=== PATIENT | female | born 2000 | race Caucasian/White ===

== ENCOUNTER 2020-10-14 14:51 | Observation (INO) | payer OTHER, SELFPAY ==
[2020-10-14 15:01] VITALS: BP 125/73; PULSE 135
[2020-10-14 15:15] VITALS: BP 117/65; PULSE 164
[2020-10-14 15:30] VITALS: BP 113/72; PULSE 121
[2020-10-14 15:46] VITALS: BP 130/94; PULSE 109
--- NOTE | 2020-10-14 15:51 | PC.NURSE ---
Spoke with Dr. Hinkle, SVE and NST reviewed. Orders to discharge patient to home.
--- NOTE | 2020-10-14 15:54 | OBADM ---
This patient, Zita Cloud, admitted to the OB room Labor/Delivery/Recovery 105 for observation. Patient/family oriented to hospital policies and general routines including ID bracelet, bed and alarms, visiting hours, pain management, procedures, bathroom and other care routines, personal items, smoking policy, room service/diet, and visiting hours. Patient/Family are encouraged to report perceived risks to care and to ask questions if they do not understand what they are told or what they should do.
--- NOTE | 2020-10-14 15:59 | P.PNOB_ITS ---
OB - Triage/Final Diagnosis Visit Information Date of evaluation: 10/14/20 Reason for evaluation: threatened labor Comments/Additional reasons for admission: I have assessed the risk for this patient, Zita Cloud, and determined that she would benefit from o bservation care. Evaluation Vital signs: Vital Signs - 24 hr 10/14/20 15:01 10/14/20 15:15 10/14/20 15:30 Pulse Rate 135 H 164 H 121 H Blood Pressure 125/73 117/65 113/72 10/14/20 15:46 Pulse Rate 109 H Blood Pressure 130/94 H
[2020-10-14 16:00] VITALS: BP 129/69; PULSE 113
[2020-10-14 16:01] VITALS: BP 129/69; PULSE 106
== END 2020-10-14 16:06 | disposition home or self-care (01) ==
PROVIDERS: Admitting Provider Student in an Organized Health Care Education/Training Program; Visit Provider Student in an Organized Health Care Education/Training Program
DX: O47.9 False labor, unspecified (principal); Z3A.00 Weeks of gestation of pregnancy not specified
CPT/HCPCS: 59025; G0378; G0379

== ENCOUNTER 2020-10-14 23:11 | Inpatient (IN) | payer OTHER, SELFPAY ==
[2020-10-14 23:22] VITALS: BP 146/70; PULSE 152
[2020-10-14 23:30] VITALS: BP 140/84; PULSE 130
[2020-10-14 23:45] VITALS: BP 140/76; PULSE 110
[2020-10-15] VITALS (62 sets, daily range): BP systolic 105–141; BP diastolic 55–107; PULSE 73–159; RESP 14–18; TEMP 36.4–37.1; O2SAT 96–99; BMI 25.1
[2020-10-15 00:28] LABS: Basophils Percent Auto 0.4 % (0.2-1.2); Eosinophils Percent Auto 0.4 % (0-4.4); Hematocrit 29.3 % (37.0-47.0); Hemoglobin 9.4 g/dL (12.0-15.0); Immature Granulocyte Absolute 0.27 K/mm3 (0.00-0.031); Immature Granulocyte Percent A 2.8 % (0-0.5); Lymphocytes Absolute Auto 1.35 K/mm3 (0.9-3.2); Lymphocytes Percent Auto 13.9 % (18.3-44.2); Mean Corpuscular HGB Conc 32.1 g/dl (32-36); Mean Corpuscular Hemoglobin 26.6 pg (26-34); Mean Platelet Volume 11.8 fl (7.4-10.4); Monocytes Absolute Auto 0.8 K/mm3 (0.1-0.6); Monocytes Percent Auto 8.4 % (2.6-8.5); Neutrophils Absolute Auto 7.2 K/mm3 (1.3-6.7); Neutrophils Percent Auto 74.1 % (45.5-73.1); Nucleated Red Blood Cells Perc 0.3 % (0.0-0.2); Platelet Count Result 194 k/mm3 (150-375); Red Blood Count 3.53 M/mm3 (4.2-5.4); Red Cell Distribution Width 13.2 % (11.5-14.5); White Blood Count 9.7 K/mm3 (4.5-10.0)
--- NOTE | 2020-10-15 00:55 | LDADM ---
This patient, Zita Cloud, was admitted to Labor/Delivery/Recovery 106 on 10/14/20 at 23:11. Plans for labor, pain management and were discussed with patient. Patient/family oriented to hospital policies and general routines including ID bracelet, bed and alarms, visiting hours, pain management, procedures, bathroom and other care routines, personal items, smoking policy, room service/diet and guest tray routines, infant security routines, and visiting hours. Patient/Family are encouraged to report perceived risks to care and to ask questions if they do not understand what they are told or what they should do. See OBIX for further documentation.
[2020-10-15] MEDS: LACTATED RINGERS 1,000 ML 125 ML IV CONT ×2 (03:41→04:16)
--- NOTE | 2020-10-15 04:07 | WPDANESEPP ---
Anes - Eval Pre Procedure Procedure: Labor epidural Date/Time: 10/15/20 04:07 Surgeon: jean pierre Preop Diagnosis: abd pain with contractions Pre Op Diagnosis: SROM Patient Data Age: 20 Gender: F Height: Weight: Last Vital Signs Temp 97.9 F 10/15/20 03:40 Pulse 132 H 10/15/20 04:00 BP 105/70 10/15/20 04:00 Pulse Ox 98 10/15/20 04:05 Allergies Allergy/AdvReac Type Severity Reaction Status Date / Time No Known Allergies Allergy Verified 09/26/20 15:41 Home Medications Medication Instructions Recorded Confirmed Type ergocalciferol (vitamin D2) 1,250 mcg PO WEEKLY 09/26/20 10/14/20 History [Vitamin D2] ferrous sulfate 250 mg PO DAILY 09/26/20 10/14/20 History prenat.vits,harshil,qud-bvhf-ipoqw 1 tablet PO DAILY 09/26/20 10/14/20 History Laboratory Tests 10/15/20 10/15/20 10/15/20 00:20 00:20 00:20 WBC 9.7 K/mm3 K/mm3 (4.5-10.0) RBC 3.53 M/mm3 L M/mm3 (4.2-5.4) Hgb 9.4 g/dL L g/dL (12.0-15.0) Hct 29.3 % L % (37.0-47.0) MCV 83.0 fl fl (80-100) MCH 26.6 pg pg (26-34) MCHC 32.1 g/dl g/dl (32-36) RDW 13.2 % % (11.5-14.5) Plt Count 194 k/mm3 k/mm3 (150-375) MPV 11.8 fl H fl (7.4-10.4) Immature Gran % (Auto) 2.8 % H % (0-0.5) Neut % (Auto) 74.1 % H % (45.5-73.1) Lymph % (Auto) 13.9 % L % (18.3-44.2) [place] % (Auto) 8.4 % % (2.6-8.5) Eos % (Auto) 0.4 % % (0-4.4) Baso % (Auto) 0.4 % % (0.2-1.2) Lymph # (Auto) 1.35 K/mm3 K/mm3 (0.9-3.2) [place] # (Auto) 0.8 K/mm3 H K/mm3 (0.1-0.6) Eos # (Auto) 0.0 K/mm3 K/mm3 (0-0.3) Baso # (Auto) 0.0 K/mm3 K/mm3 (0.0-0.1) Abs Immat Gran (auto) 0.27 K/mm3 H K/mm3 (0.00-0.031) Absolute Neuts (auto) 7.2 K/mm3 H K/mm3 (1.3-6.7) Absolute Nucleated RBC 0.0 K/mm3 K/mm3 (0.0-0.012) Nucleated RBC % 0.3 % H % (0.0-0.2) RPR Pending Blood Type O Positive Antibody Screen Negative Patient hx anesthesia problems: none Family hx anesthesia problems: none PMFSH Past Medical History Medical History 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
--- NOTE | 2020-10-15 05:02 | PM.IMHP ---
H&P: HPI History of Present Illness Date/Time: 10/15/20 05:02 20-year-old 2 para 1 with an EDC of 10/23/2020. We by early ultrasound is admitted in active labor. She transferred at 29 weeks gestation. 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 Family History Family History Grandparent Diabetes mellitus Sibling Epilepsy Social History Social History Smoking status: Never smoker Second hand tobacco smoke exposure: No Substance use: never Spiritual care concerns: No Meds Home Medications and Allergies Home Medications Medication Instructions Recorded Confirmed Type ergocalciferol (vitamin D2) 1,250 mcg PO WEEKLY 09/26/20 10/14/20 History [Vitamin D2] ferrous sulfate 250 mg PO DAILY 09/26/20 10/14/20 History prenat.vits,harshil,pyr-ghno-ipwfo 1 tablet PO DAILY 09/26/20 10/14/20 History Allergies Allergy/AdvReac Type Severity Reaction Status Date / Time No Known Allergies Allergy Verified 09/26/20 15:41 Vital Signs Vital Signs - 24 hr 10/14/20 23:22 10/14/20 23:30 10/14/20 23:45 Temperature Pulse Rate 152 H 130 H 110 H Blood Pressure 146/70 H 140/84 140/76 Pulse Oximetry 10/15/20 00:00 10/15/20 00:15 10/15/20 00:30 Temperature 98.8 F Pulse Rate 90 98 86 Blood Pressure 137/76 139/69 137/74 Pulse Oximetry 10/15/20 00:45 10/15/20 01:00 10/15/20 01:15 Temperature Pulse Rate 106 H 113 H 106 H Blood Pressure 130/78 130/71 123/74 Pulse Oximetry 10/15/20 01:30 10/15/20 01:45 10/15/20 02:00 Temperature Pulse Rate 85 88 117 H Blood Pressure 126/67 119/67 133/62 Pulse Oximetry 10/15/20 02:15 10/15/20 02:30 10/15/20 02:45 Temperature Pulse Rate 114 H 94 99 Blood Pressure 113/60 119/64 112/73 Pulse Oximetry 10/15/20 03:00 10/15/20 03:15 10/15/20 03:30 Temperature Pulse Rate 86 84 95 Blood Pressure 117/67 110/70 120/92 H Pulse Oximetry 10/15/20 03:40 10/15/20 03:45 10/15/20 04:00 Temperature 97.9 F Pulse Rate 111 H 132 H Blood Pressure 128/73 105/70 Pulse Oximetry 98 10/15/20 04:05 10/15/20 04:07 10/15/20 04:08 Temperature Pulse Rate 111 H 107 H Blood Pressure 127/75 138/68 Pulse Oximetry 98 10/15/20 04:10 10/15/20 04:12 10/15/20 04:13 Temperature Pulse Rate 103 H 109 H 101 H Blood Pressure 119/77 110/75 123/65 Pulse Oximetry 98 98 10/15/20 04:15 10/15/20 04:17 10/15/20 04:18 Temperature Pulse Rate 105 H 105 H Blood Pressure 134/65 131/73 Pulse Oximetry 96 10/15/20 04:20 10/15/20 04:22 10/15/20 04:23 Temperature Pulse Rate 94 142 H Blood Pressure 124/107 H 120/67 Pulse Oximetry 98 10/15/20 04:24 10/15/20 04:25 10/15/20 04:26 Temperature 98.1 F Pulse Rate 159 H 114 H Blood Pressure 110/59 L 113/55 L Pulse Oximetry 10/15/20 04:27 10/15/20 04:28 10/15/20 04:30 Temperature Pulse Rate 90 87 Blood Pressure 140/72 126/64 Pulse Oximetry 98 10/15/20 04:32 10/15/20 04:37 10/15/20 04:42 Temperature Pulse Rate Blood Pressure Pulse Oximetry 98 96 98 10/15/20 04:45 10/15/20 04:47 10/15/20 04:52 Temperature Pulse Rate 77 Blood Pressure 122/65 Pulse Oximetry 99 99 10/15/20 04:57 10/15/20 05:00 Temperature Pulse Rate Blood Pressure 139/83 Pulse Oximetry 99 Exam Const: General: no acute distress Eyes: General: appearance normal, both eyes and all related structures Neck: Neck: supple and no JVD Thyroid: thyroid normal Resp: Effort & Inspection: normal respiratory effort Au
--- NOTE | 2020-10-15 05:26 | PM.OBPRVD ---
OB - Delivery Note Procedure Delivery date: 10/15/20 Intrapartal events: None Induction method: none Delivery monitor: external FHT Route of delivery: Episiotomy description: None Laceration Description: None Quantitative Blood Loss (ml): 158 Anesthesia type: Epidural Disposition: floor Baby Date of : 10/15/20 Time of : 05:16 Weeks of gestation at delivery: 39 gender: Female presentation: vertex position: Right Occiput Anterior Placenta delivery description: Spontaneous cord vessel description: 3 Vessels score one minute: 9 score five minutes: 9
[2020-10-15] MEDS: OXYTOCIN 30 UNITS/NS 500 ML 30 UNITS/500 ML BAG 125 UNITS IV CONT (05:52)
[2020-10-15] MEDS: BENZOCAINE 20% AER SPR (*SP) 56 GM CAN 1 SPRAY TOPICAL (08:17)
[2020-10-15] MEDS: WITCH HAZEL 40 PADS 1 PAD TOPICAL (08:18)
[2020-10-15] MEDS: MULTIVIT/MIN/PREN/FOL AC/IRON TABLET 1 TAB PO (08:55)
[2020-10-15] MEDS: POLYSACCHARIDE IRON COMPLEX 150 MG CAPSULE PO ×2 (08:56→16:13)
[2020-10-15] MEDS: IBUPROFEN 600 MG TABLET PO ×2 (08:57→16:11)
[2020-10-15] MEDS: DOCUSATE SODIUM 100 MG CAPSULE PO ×2 (08:57→16:13)
[2020-10-15] MEDS: LANOLIN (LANSINOH) 7.5 GM CREAM 1 APPLIC TOPICAL (09:02)
[2020-10-15 12:00] LABS: Rapid Plasma Reagin Non-Reactive (NonReactive)
--- NOTE | 2020-10-15 12:50 | PC.NURSE ---
Consulted with patient, mother reports first child for 1 month with difficulties and pain with feeding. Mother was pleased eagerly latched for first feeding. Reviewed feeding cues, frequencies, duration of feedings, feeding elimination flow sheet, and signs of adequate intake. not ready for next feeding, demonstrated stimulation techniques to wake for feeding. Assisted with infant to breast. Reviewed positioning/alignment in cross cradle, holding breast in U hold and guided asymmetrical latch on. was able to latch correctly. Infant nursed eagerly, with steady draws and frequent swallowing noted. Reviewed signs of a correct latch, effective nursing and suck swallow ratio. Infant was able to maintain latch without discomfort to mother. Nipple care reviewed. slipped to shallow latch, demonstrated how to adjust latch more deeply while feeding. Mother quickly reports she can feel infant is latched more deeply and has minimal tenderness. Suggested to stimulate while feeding to keep awake and nursing effectively for increased stimulation and increased intake. Instructed mother to call out for RN assistance if she is unable to latch for feeding or she has discomfort with nursing. Instructed mother to call out for RN assistance if she is unable to latch for feeding or she has discomfort with nursing. Instructed feeding should be initiated three hours from start of last feeding or if feeding cues are noted before. Mother voiced understanding of information shared.
--- NOTE | 2020-10-15 17:55 | PC.NURSE ---
0827 Pt admitted from labor and delivery per wheelchair to room 281 after spontaneous vaginal delivery of viable female infant at [address] Tommy Regalado for Dr. Hinkle. Mother is a and is choosing to breast feed infant. FOB present. Couple oriented to room, staffing and procedures; admission folder reviewed including Mother Baby Guide. Pt's VSS and assessment WNL.
[2020-10-16 00:15] VITALS: BP 108/61; PULSE 76; RESP 14; TEMP 36.5; O2SAT 97
[2020-10-16 05:20] VITALS: BP 111/70; PULSE 66; RESP 14; TEMP 36.2; O2SAT 97
[2020-10-16 05:39] LABS: Hematocrit 28.3 % (37.0-47.0)
--- NOTE | 2020-10-16 07:27 | PM.OBDSVD ---
DS: Admitting Diagnosis Admitting Diagnosis Admitting Diagnosis: Spontaneous rupture of membranes OB - DS: Summary OB Procedures : None OB Procedures Intrapartum: Spontaneous Vag Delivery OB Procedures: : None Status at Discharge Functional status at discharge: independent ambulation Overall status at discharge: patient is back to baseline Time Spent with Patient Time attestation: Total time spent providing and/or coordinating discharge services: Time spent: Less than 30 minutes Exam Const: General: comfortable and no acute distress Resp: Effort & Inspection: normal respiratory effort Auscultation: clear to auscultation bilaterally Cardio: Rate: regular rate GI: GI Palp: Yes Soft to palpation Auscultation: normal bowel sounds Other: Fundus firm below umbilicus Psych: Appearance: grossly normal Mental Status: mental status grossly normal Affect: normal affect DS: Data Data Completed and Pending Labs on day of discharge: Labs from last 24 hours 10/16/20 10/15/20 05:25 00:20 Hgb 9.0 L Hct 28.3 L RPR Non-reactive Discharge Plan Discharge Discharging Clinician: geraldo Patient Disposition: Home, Self-Care Activity: as tolerated and pelvic rest Diet: regular Discharge Instructions: call or return for temperature >100.4, bleeding >2 pads/hr for 2 hrs, pain not controlled with medications, signs/symptoms of mastitis Patient Instructions: Antibiotic Form, Vaginal Delivery (DC) Stand Alone Forms: General Discharge Information Follow-up/Referrals: Dez Hinkle MD [Physician] - 4 Weeks Discharge Medications: New acetaminophen [Mapap (acetaminophen)] 325 mg Tablet 650 mg PO Q6H PRN (Reason: Mild Pain (1-3) Or Headache) Qty: 30 RF: 0 ibuprofen 600 mg Tablet 600 mg PO Q6H PRN (Reason: Cramping) Qty: 30 RF: 0 Continued ergocalciferol (vitamin D2) [Vitamin D2] 1,250 mcg (50,000 unit) Capsule 1,250 mcg PO WEEKLY RF: 0 prenat.vits,harshil,nmb-jcwv-jstej Tablet 1 tablet PO DAILY RF: 0 ferrous sulfate 250 mg (50 mg iron) Tablet Extended Release 250 mg PO DAILY RF: 0 Date of admission: 10/14/20 23:11 Primary Care Provider: PHYSICIAN,PARKING ENFORCER Admitting Provider: Dez Hinkle Attending physician on admission: Dez Hinkle Condition: Stable
--- NOTE | 2020-10-16 07:42 | WPDANLDPN2 ---
Anes-Prog Note L&D Date/Time: 10/16/20 07:42 Comfortable throughout: labor and delivery Neuraxial method: epidural Epidural/Spinal procedure site: clean & non-tender Neuro status: Neuro function grossly intact. Cardiovascular status: normal Respiratory status: normal Airway patency: baseline Mental status: baseline Post-Op hydration status: normal Vital Signs: Last Vital Signs Temp 36.2 C L 10/16/20 05:20 Pulse 66 10/16/20 05:20 Resp 14 10/16/20 05:20 BP 111/70 10/16/20 05:20 Pulse Ox 97 10/16/20 05:20 Pain score (VAS): 3 I/O: Intake & Output 10/15/20 10/15/20 10/16/20 15:59 23:59 07:59 Output Total 75 Balance -75 Post-procedural complaints: none Patient feedback: Patient satisfied with anesthetic care.
[2020-10-16 08:20] VITALS: BP 120/71; PULSE 74; RESP 18; TEMP 36.9; O2SAT 99
--- NOTE | 2020-10-16 08:30 | PC.NURSE ---
PT introductions made and plan of care discussed per post , pain management, breast feeding, daily care activities and pending discharge to home. PT verbalized understanding of such care. PT received education via one to one discussion and mom baby care guide through out the day. no barriers to learning noted. Mom verbalized understanding of such care.
[2020-10-16 09:30] VITALS: PULSE 74; RESP 18; O2SAT 99
[2020-10-16] MEDS: MULTIVIT/MIN/PREN/FOL AC/IRON TABLET 1 TAB PO (09:38)
[2020-10-16] MEDS: DOCUSATE SODIUM 100 MG CAPSULE PO (09:38)
[2020-10-16] MEDS: POLYSACCHARIDE IRON COMPLEX 150 MG CAPSULE PO (09:40)
--- NOTE | 2020-10-16 13:30 | PC.NURSE ---
PT received discharge instructions per protocol and verbalized understanding of such care
--- NOTE | 2020-10-16 14:30 | PC.NURSE ---
PT discharged to home ambulatory accompanied by fob and infant to waiting car. Follow up appts confirmed
[2020-10-17 10:15] VITALS: BP 123/73; PULSE 63; RESP 20; TEMP 36.8; O2SAT 100
== END 2020-10-16 14:30 | disposition home or self-care (01) | DRG 560 ==
LOC: ANHLDR 23:45 → ANHOB2 10-15 08:33
PROVIDERS: Admitting Provider Obstetrics & Gynecology; Visit Provider Student in an Organized Health Care Education/Training Program
DX: O80 Encounter for full-term uncomplicated delivery (principal); Z3A.38 38 weeks gestation of pregnancy; Z37.0 Single live birth
CPT/HCPCS: 36415; 59025; 85014; 85018; 85025; 86592; 86850; 86900; 86901; A9270; G0378; G0379; J2590; J2795; J7120

== ENCOUNTER 2021-03-26 18:22 | Emergency (ER) | payer OTHER, SELFPAY ==
--- NOTE | ~2021-03-26 | XR_ITS ---
XR chest 2V DATE: 03/26/2021 18:52 INDICATION: Chest tightness TECHNIQUE: PA and lateral views COMPARISON: None FINDINGS: Normal heart size. No hilar or mediastinal enlargement. The lungs are clear of infiltrate o r consolidation. No pleural effusion or pulmonary vascular congestion or pneumothorax. IMPRESSION: Negative chest Reviewed, dictated and finalized at location A. IMPRESSION: Negative chest
--- NOTE | 2021-03-26 18:39 | ECG_ITS ---
Measurements Intervals [place] Rate: 106 P: 75 TN: 126 QRS: 82 QRSD: 90 T: 68 QT: 328 QTc: 435 Interpretive Statements SINUS TACHYCARDIA POSSIBLE LEFT ATRIAL ENLARGEMENT INCOMPLETE RIGHT BUNDLE BRANCH BLOCK ABNORMAL ECG Electronically Signed On 03-26-2021 20:09:16 CDT by Dm Obrien D.O.
[2021-03-26 18:46] VITALS: BP 119/76; PULSE 106; RESP 20; TEMP 36.8; O2SAT 96
--- NOTE | 2021-03-26 19:15 | ED.URI ---
HPI - URI/Sore Throat General Chief Complaint: Upper Respiratory Infection Stated Complaint: SOB, occasional arm numbness,chest pressure Source: patient Mode of arrival: ambulatory Limitations: no limitations History of Present Illness HPI Narrative: Patient is a 20-year-old with that presents to the emergency department with a sense of fullness in her throat currently no allergic reaction no rash no shortness of breath patient feels like she is having palpitations, but no fever chills no chest pain or pressure in her chest no abdominal pain no dysuria no flank pain. 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 Family History Family History Grandparent Diabetes mellitus Sibling Epilepsy Social History Social History Smoking status: Never smoker Second hand tobacco smoke exposure: No Substance use: never Spiritual care concerns: No Exam Const: General: no acute distress and alert Orientation/consciousness: patient oriented x3 HENMT: Head: normal to inspection Eyes: Conjunctivae: conjunctivae normal Pupils: Equal, round and reactive pupils present Chest: Chest palpation & inspection: normal inspection of the chest Resp: Effort & Inspection: normal respiratory effort Cardio: Rate: regular rate Rhythm: regular rhythm GI: GI Palp: Yes Soft to palpation : General: Yes no CVA tenderness Urinary Catheter: Urinary Catheter: patent and draining Back/Spine/Pelvis: Back: no CVA tenderness Neuro: General: patient oriented x3, moves all extremities, no meningeal signs and no focal motor deficits Extrem: General: no pedal edema Psych: Mental Status: mental status grossly normal Affect: normal affect Course Course Emergency Course: Chest x-ray and EKG were reviewed with patient, discussed the EKG which shows possibility of a right ventricular conduction delay and advised her to follow-up with her Cardiology are primary care physician Vital Signs Vital signs: Vital Signs Temperature 36.8 C 03/26/21 18:46 Pulse Rate 106 H 03/26/21 18:46 Respiratory Rate 20 03/26/21 18:46 Blood Pressure 119/76 03/26/21 18:46 Pulse Oximetry 96 03/26/21 18:46 Temperature 36.8 C 03/26/21 18:46 Pulse Rate 106 H 03/26/21 18:46 Respiratory Rate 20 03/26/21 18:46 Blood Pressure 119/76 03/26/21 18:46 Pulse Oximetry 96 03/26/21 18:46 Critical Care Time Critical Care Time Critical Care Time: No Discharge Plan Discharge Clinical Impression: Palpitation Patient Disposition: Home, Self-Care Condition: Stable Instructions: Antibiotic Form, Heart Palpitations (ED) Additional Instructions: can take fokt-fjb-evitstr magnesium 250mg 1 to 2 hours before bedtime, and follow up with your primary care physician within 1 to 2 weeks further evaluation treatment. Prescriptions: No Action No Home Medications RF: 0 Follow-up/Referrals: UNKNOWN,DOCTOR [Primary Care Provider] - Time of Disposition: 19:18
[2021-03-26 19:19] VITALS: BP 103/68; PULSE 114; RESP 20; O2SAT 98
== END 2021-03-26 19:28 | disposition home or self-care (01) ==
PROVIDERS: Emergency Provider Emergency Medicine
DX: R00.2 Palpitations (principal)
CPT/HCPCS: 71046; 93005; 99282; 99283

== ENCOUNTER 2021-03-26 20:21 | Emergency (ER) | payer OTHER, SELFPAY ==
--- NOTE | ~2021-03-26 | XR_ITS ---
XR chest 2V DATE: 03/26/2021 21:00 INDICATION: Shortness of breath, sharp mid sternal chest pain TECHNIQUE: PA and lateral views COMPARISON: 03/26/2021 PA and lateral chest FINDINGS: Normal heart size. No hilar or mediastinal enlargement. Bilateral hyperinflation. No pulmon allan infiltrate or consolidation, pleural effusion or pulmonary vascular congestion or pneumothorax. Included skeletal structures are unremarkable. IMPRESSION: Bilateral hyperinflation; otherwise no active cardiopulmonary disease Reviewed, dictated and finalized at location A. IMPRESSION: Bilateral hyperinflation; otherwise no active cardiopulmonary disea se
--- NOTE | 2021-03-26 20:36 | ECG_ITS ---
Measurements Intervals [place] Rate: 99 P: 88 NV: 121 QRS: 81 QRSD: 94 T: 48 QT: 337 QTc: 433 Interpretive Statements SINUS RHYTHM WITH SINUS ARRHYTHMIA INCOMPLETE RIGHT BUNDLE BRANCH BLOCK BASELINE ARTIFACT- I, III, AVR, AVL, AVF BORDERLINE ECG Electronically Signed On 03-27-2021 5:53:47 CDT by Dm Obrien D.O.
[2021-03-26 20:43] VITALS: BP 92/72; PULSE 118; RESP 20; TEMP 36.9; O2SAT 100
[2021-03-26 20:59] LABS: Basophils Percent Auto 0.3 % (0.2-1.2); Eosinophils Percent Auto 0.3 % (0-4.4); Hematocrit 39.8 % (37.0-47.0); Hemoglobin 13.2 g/dL (12.0-15.0); Immature Granulocyte Absolute 0.03 K/mm3 (0.00-0.031); Immature Granulocyte Percent A 0.4 % (0-0.5); Lymphocytes Absolute Auto 1.39 K/mm3 (0.9-3.2); Lymphocytes Percent Auto 18.3 % (18.3-44.2); Mean Corpuscular HGB Conc 33.2 g/dl (32-36); Mean Corpuscular Hemoglobin 27.9 pg (26-34); Mean Corpuscular Volume 84.1 fl (80-100); Mean Platelet Volume 10.3 fl (7.4-10.4); Monocytes Absolute Auto 0.5 K/mm3 (0.1-0.6); Monocytes Percent Auto 6.3 % (2.6-8.5); Neutrophils Absolute Auto 5.6 K/mm3 (1.3-6.7); Neutrophils Percent Auto 74.4 % (45.5-73.1); Platelet Count Result 313 k/mm3 (150-375); Red Blood Count 4.73 M/mm3 (4.2-5.4); Red Cell Distribution Width 12.5 % (11.5-14.5); White Blood Count 7.6 K/mm3 (4.5-10.0)
[2021-03-26 21:08] LABS: Add Urine Microscopic? NO; Appearance Urine Clear (Clear); Bilirubin Urine Negative (Negative); Blood Urine Negative (Negative); Color Urine Yellow (Yellow); Glucose Urine UA Negative (Negative); Ketones Urine Negative (Negative); Leukocyte Esterase Ur Negative LEU/UL (Negative); Nitrate Urine Negative (Negative); Protein Urine Negative (Negative); Specific Grav Ur 1.015 (1.001-1.035); Urobilinogen Urine Negative mg/dL (<2.0)
[2021-03-26 21:09] LABS: Alanine Aminotransferase 23 U/L (4-35); Alkaline Phosphatase 133 U/L (38-126); Anion Gap 11 mmol/L (8-16); Aspartate Amino Transferase 30 U/L (14-36); Bilirubin,Total 0.3 mg/dL (0.2-1.3); Blood Urea Nitrogen 10 mg/dL (7-17); Calcium 10.1 mg/dL (8.4-10.2); Carbon Dioxide 24 mmol/L (22-30); Chloride 107 mmol/L (98-107); Estimated CRCL calculation 100 ml/min; Estimated Glomerular Filt Rate > 60; Glucose 122 mg/dL (65-110); Potassium 3.8 mmol/L (3.4-5.0); Sodium 142 mmol/L (137-145)
[2021-03-26 21:21] LABS: Troponin I < 0.012 ng/mL (0.000-0.034)
[2021-03-26] MEDS: LORazepam INJ (*CRX) 2 MG/ML VIAL 1 MG IV PUSH (23:01)
[2021-03-26 23:46] LABS: D Dimer 0.48 ug/mL (<0.48)
[2021-03-27 00:10] VITALS: BP 114/63; PULSE 79; RESP 18; O2SAT 98
--- NOTE | 2021-03-27 00:19 | ED.SOB ---
HPI - SOB/Dyspnea General Chief Complaint: Shortness of Breath/Dyspnea Stated Complaint: sob, chest pain Time Seen by Provider: 03/26/21 22:22 Source: patient Mode of arrival: ambulatory Limitations: no limitations History of Present Illness HPI Narrative: 20-year-old female Healthy Breast-feeding mom Second visit to the ED today because of complaints about shortness of breath and sharp anterior chest pains She also threw up in the waiting room here She does not have fever or cough She is not sure what triggers the episodes Sometimes they are accompanied by a sensation of a lump in the throat No swelling in the legs Related Data Home Medications Medication Instructions Recorded Confirmed No Home Medications 03/26/21 03/26/21 Allergies Allergy/AdvReac Type Severity Reaction Status Date / Time No Known Allergies Allergy Verified 03/26/21 19:02 Review of Systems Review of Systems: All systems reviewed & are unremarkable except as noted in HPI and below Constitutional: Constitutional: Reports no additional constitutional complaints, Denies chills, Reports fatigue, Denies fever(s), Denies headache(s) and Reports weakness Eyes: Eyes: Reports no additional eye complaints and Denies change in vision ENT: Denies headache(s) and Denies sore throat Cardiovascular: Cardiovascular: Reports chest pain and Denies dyspnea Respiratory: Respiratory: Denies cough and Reports dyspnea Gastrointestinal: Gastrointestinal: Denies abdominal pain, Denies diarrhea, Reports nausea and Denies vomiting Genitourinary: Genitourinary: Denies urinary frequency and Denies dysuria Musculoskeletal: Musculoskeletal: Denies deformity, Denies arthralgias, Denies joint swelling and Denies numbness Integumentary/Breasts: Skin/Breast: Denies rash and Denies wounds Neurologic: Denies headache(s), Denies focal weakness and Denies numbness Psychiatric: Psychiatric: Reports no additional psychiatric complaints Comments: Seems anxious Endocrine: Endocrine: Reports no additional endocrine complaints Hematologic/Lymphatic: Hematologic/Lymphatic: Reports no additional hematologic/lymphatic complaints Allergic/Immunologic: Allergic/Immunologic: Reports no additional allergic/immunologic complaints PMFSH Past Medical History Medical History 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 Family History Family History Grandparent Diabetes mellitus Sibling Epilepsy Social History Social History Smoking status: Never smoker Second hand tobacco smoke exposure: No Substance use: never Spiritual care concerns: No Exam Const: General: cooperative, healthy appearing, no acute distress and alert Nutritional Appearance: thin Orientation/consciousness: patient oriented x3 (alert) HENMT: Head: normal to inspection, normocephalic and atraumatic Ears: external ears normal General nose exam: no epistaxis Eyes: Conjunctivae: conjunctivae normal EOM: EOMs intact bilaterally Neck: Neck: normal visual inspection, supple and no JVD Chest: Chest palpation & inspection: no tenderness Resp: Effort & Inspection: normal respiratory effort and not labored Auscultation: clear to auscultation bilaterally, no rales, no rhonchi, no wheezes and other (BS =) Cardio: Rate: regular rate Rhythm: regular rhythm Heart sounds: no murmurs GI: GI Palp: Yes Soft to palpation and No Tenderness to palpation present (GI) Skin: General skin exam: normal color and no rashes or lesions noted Neuro: General: patient oriented x3 (alert), moves all extremities and CN's II-XI intact bilaterally Speech: normal speech Extrem: General: normal to inspection and no pedal edema Other: No tenderness Psych: Other: Appears very animated and anxious Course Course [place]
== END 2021-03-27 00:28 | disposition home or self-care (01) ==
PROVIDERS: Emergency Medicine; Emergency Provider Emergency Medicine
DX: F41.9 Anxiety disorder, unspecified (principal); Z86.2 Personal history of diseases of the blood and blood-forming organs and certain disorders involving the immune mechanism; I45.10 Unspecified right bundle-branch block
CPT/HCPCS: 36415; 71046; 80053; 81003; 81025; 84484; 85025; 85380; 93005; 96374; 99284; J2060

== ENCOUNTER 2021-03-29 18:26 | Emergency (ER) | payer OTHER, SELFPAY ==
--- NOTE | ~2021-03-29 | XR_ITS ---
XR chest 2V DATE: 03/29/2021 19:33 INDICATION: Midsternal chest pain, shortness of breath, palpitations TECHNIQUE: PA and lateral views COMPARISON: 03/26/2021 2 view chest FINDINGS: No pulmonary infiltrate or consolidation, pleural effusion or pulmonary vascular congestion or pneumothorax. Normal heart size. No hilar or mediastinal enlargement. IMPRESSION: No active cardiopulmonary disease Reviewed, dictated and finalized at location A.
--- NOTE | 2021-03-29 18:30 | ECG_ITS ---
Measurements Intervals [place] Rate: 92 P: 87 [place]: 124 QRS: 80 QRSD: 91 T: 50 QT: 347 QTc: 431 Interpretive Statements SINUS RHYTHM WITH SINUS ARRHYTHMIA POSSIBLE LEFT ATRIAL ENLARGEMENT INCOMPLETE RIGHT BUNDLE BRANCH BLOCK BASELINE ARTIFACT- I, AVR, AVL BORDERLINE ECG Electronically Signed On 03-29-2021 19:25:15 CDT by Dm Obrien D.O.
[2021-03-29 19:18] VITALS: BP 122/71; PULSE 121; RESP 14; TEMP 36.6; O2SAT 100
[2021-03-29 19:45] LABS: Basophils Percent Auto 0.4 % (0.2-1.2); Eosinophils Absolute Auto 0.1 K/mm3 (0-0.3); Eosinophils Percent Auto 0.8 % (0-4.4); Hematocrit 38.4 % (37.0-47.0); Hemoglobin 12.7 g/dL (12.0-15.0); Immature Granulocyte Absolute 0.02 K/mm3 (0.00-0.031); Immature Granulocyte Percent A 0.3 % (0-0.5); Lymphocytes Percent Auto 16.3 % (18.3-44.2); Mean Corpuscular HGB Conc 33.1 g/dl (32-36); Mean Corpuscular Hemoglobin 28.3 pg (26-34); Mean Corpuscular Volume 85.7 fl (80-100); Mean Platelet Volume 10.2 fl (7.4-10.4); Monocytes Absolute Auto 0.5 K/mm3 (0.1-0.6); Monocytes Percent Auto 6.5 % (2.6-8.5); Neutrophils Absolute Auto 5.6 K/mm3 (1.3-6.7); Neutrophils Percent Auto 75.7 % (45.5-73.1); Platelet Count Result 290 k/mm3 (150-375); Red Blood Count 4.48 M/mm3 (4.2-5.4); Red Cell Distribution Width 12.3 % (11.5-14.5); White Blood Count 7.4 K/mm3 (4.5-10.0)
[2021-03-29 19:54] LABS: Anion Gap 10 mmol/L (8-16); Blood Urea Nitrogen 10 mg/dL (7-17); Calcium 9.2 mg/dL (8.4-10.2); Carbon Dioxide 28 mmol/L (22-30); Chloride 104 mmol/L (98-107); Estimated CRCL calculation 100 ml/min; Estimated Glomerular Filt Rate > 60; Glucose 107 mg/dL (65-110); Potassium 3.9 mmol/L (3.4-5.0); Sodium 142 mmol/L (137-145)
[2021-03-29 19:54] LABS: Prothrombin Time 12.6 Seconds (11.1-14.7)
[2021-03-29 19:55] LABS: Partial Thromboplastin Time 29.6 SECONDS (22.3-36.8)
[2021-03-29 20:06] LABS: Troponin I < 0.012 ng/mL (0.000-0.034)
[2021-03-29 20:59] VITALS: O2SAT 99
[2021-03-29 21:13] LABS: Alanine Aminotransferase 21 U/L (4-35); Albumin Level 4.9 g/dL (3.5-5.1); Alkaline Phosphatase 123 U/L (38-126); Aspartate Amino Transferase 31 U/L (14-36); Bilirubin,Total 0.5 mg/dL (0.2-1.3); Lipase 59 U/L (23-300)
[2021-03-29] MEDS: KETOROLAC 15 MG/ML VIAL (*BKC) IV PUSH (22:32)
[2021-03-29] MEDS: LORazepam INJ (*CRX) 2 MG/ML VIAL 0.5 MG IV PUSH (22:32)
[2021-03-29 22:50] LABS: Troponin I < 0.012 ng/mL (0.000-0.034)
--- NOTE | 2021-03-29 23:07 | ED.GENADULT ---
HPI - General Adult General Chief complaint: Chest Pain Stated complaint: chest pain Time Seen by Provider: 03/29/21 20:55 History of Present Illness HPI narrative: Patient a 20-year-old female presents emerged from with chief complaint of chest pain. Patient states been seen multiple times in the emergency department at both our facility and another facility after she has had a sharp type pain in her chest. The patient states that she is also had some palpitations recently. Patient states that the pain is worse with movement and inspiration reports that the sharp type pain patient reports no prior history of cardiac disease. Related Data Home Medications Medication Instructions Recorded Confirmed No Home Medications 03/26/21 03/26/21 Allergies Allergy/AdvReac Type Severity Reaction Status Date / Time No Known Allergies Allergy Verified 03/29/21 21:00 Review of Systems Review of Systems: A 10 system review of systems was completed on the patient and is negative except for what is stated in the HPI. Nursing and ancillary documentation was reviewed. 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 HEAD: Normocephalic, atraumatic. EYES: PERRLA and EOMI. ENT: Nares clear, no rhinorrhea or epistaxis. Mucous membranes moist. NECK: Supple. CHEST: Clear to auscultation. No respiratory distress. Chest wall is tender to palpation at the sternal border HEART: Regular rate and rhythm. No murmur heard. Normal peripheral pulses. ABDOMEN: Soft, nontender, nondistended, normal active bowel sounds. EXTREMITIES: Normal range of motion. No edema. SKIN: Warm, dry, no rash. NEURO: No focal deficits. Alert and oriented x3. PSYCH: Normal mood and affect. Course Vital Signs Vital signs: Vital Signs Temperature 36.6 C 03/29/21 19:18 Pulse Rate 121 H 03/29/21 19:18 Respiratory Rate 14 03/29/21 19:18 Blood Pressure 122/71 03/29/21 19:18 Pulse Oximetry 100 03/29/21 19:18 Temperature 36.6 C 03/29/21 19:18 Pulse Rate 121 H 03/29/21 19:18 Respiratory Rate 14 03/29/21 19:18 Blood Pressure 122/71 03/29/21 19:18 Pulse Oximetry 99 03/29/21 20:59 Medical Decision Making Vital Signs Vital Signs: Vital Signs Temperature 36.6 C 03/29/21 19:18 Pulse Rate 121 H 03/29/21 19:18 Respiratory Rate 14 03/29/21 19:18 Blood Pressure 122/71 03/29/21 19:18 Pulse Oximetry 100 03/29/21 19:18 Temperature 36.6 C 03/29/21 19:18 Pulse Rate 121 H 03/29/21 19:18 Respiratory Rate 14 03/29/21 19:18 Blood Pressure 122/71 03/29/21 19:18 Pulse Oximetry 99 03/29/21 20:59 Lab Data Result diagrams: 03/29/21 19:39 03/29/21 19:39 Labs: Lab Results 03/29/21 03/29/21 03/29/21 Range/Units 19:38 19:38 19:38 WBC (4.5-10.0) K/mm3 RBC (4.2-5.4) M/mm3 Hgb (12.0-15.0) g/dL Hct (37.0-47.0) % MCV (80-100) fl MCH (26-34) pg MCHC (32-36) g/dl RDW (11.5-14.5) % Plt Count (150-375) k/mm3 MPV (7.4-10.4) fl Immature Gran % (Auto) (0-0.5) % Neut % (Auto) (45.5-73.1) % Lymph % (Auto) (18.3-44.2) % [place] % (Auto) (2.6-8.5) % Eos % (Auto) (0-4.4) % Baso % (Auto) (0.2-1.2) % Lymph # (Auto) (0.9-3.2) K/mm3 [place] # (Auto) (0.1-0.6) K/mm3 Eos # (Auto) (0-0.3) K/mm3 Baso # (Auto) (0.0-0.1) K/mm3 Abs Immat G
[2021-03-29 23:13] VITALS: PULSE 80; RESP 17; TEMP 36.3; O2SAT 98
--- NOTE | 2021-03-29 23:14 | PC.NURSE ---
Assumed care of patient at this time.
[2021-03-29 23:21] VITALS: BP 123/75; PULSE 81; RESP 18; TEMP 36.3; O2SAT 99
== END 2021-03-29 23:23 | disposition home or self-care (01) ==
PROVIDERS: Family Medicine; Emergency Provider Emergency Medicine
DX: R07.89 Other chest pain (principal)
CPT/HCPCS: 36415; 71046; 80048; 80076; 83690; 84484; 85025; 85380; 85610; 85730; 93005; 96374; 96375; 99284; J1885; J2060

== ENCOUNTER 2021-04-01 09:42 | Outpatient (CLI) | payer OTHER, SELFPAY ==
--- NOTE | 2021-04-02 12:25 | WPDHOLTEREM ---
Holter/Event Monitor Holter/Event Monitor Date of procedure: 04/01/21 Holter/Event Procedure: 24 Hr Holter Monitor Indications: Palpitations Conclusion: 1. 24 hour holter monitor on 04/01/21. 2. Underlying rhythm is sinus rhythm. HR range 46-169 bpm; average HR 72 bpm. HR at 169 bpm was at 07:38. 3. There are 6 premature supraventricular complexes. No supraventricular tachycardia. 4. No premature ventricular complexes. No ventricular tachycardia. 5. No sinoatrial or atrioventricular blocks. No significant pauses greater than 2 seconds. 6. Patient reports symptoms of chest discomfort, hard to catch breath, which demonstrate sinus rhythm, HR range 71-129 bpm.
== END 2021-04-01 09:43 | disposition home or self-care (01) ==
LOC: CHSCARD 09:44
PROVIDERS: PCP Nurse Practitioner Family; Visit Provider Nurse Practitioner Family
DX: R00.2 Palpitations (principal)
CPT/HCPCS: 93225; 93226

== ENCOUNTER 2021-07-17 12:25 | Outpatient (CLI) | payer OTHER, SELFPAY ==
[2021-07-17 14:45] LABS: SARS-CoV-2 RNA PCR Negative (Negative)
== END 2021-07-17 12:26 | disposition home or self-care (01) ==
LOC: CHSLAB 12:28
PROVIDERS: PCP Nurse Practitioner Family; Visit Provider Nurse Practitioner Family
DX: Z20.822 Contact with and (suspected) exposure to COVID-19 (principal)
CPT/HCPCS: C9803; U0003; U0005

== ENCOUNTER 2021-08-19 16:23 | Outpatient (NON) | payer OTHER, SELFPAY | END 2021-08-19 16:24 | disposition home or self-care (01) | LOC: CHSLAB 16:25 | PROVIDERS: Visit Provider Nurse Practitioner Family | DX: Z12.4 Encounter for screening for malignant neoplasm of cervix (principal); Z13.89 Encounter for screening for other disorder | CPT/HCPCS: 87491; 87591; 88175; G0145 ==

== ENCOUNTER 2021-10-07 17:02 | Outpatient (NON) | payer OTHER, SELFPAY | END 2021-10-07 17:03 | disposition home or self-care (01) | LOC: CHSLAB 17:04 | PROVIDERS: Visit Provider Nurse Practitioner Family | DX: R19.5 Other fecal abnormalities (principal); B83.9 Helminthiasis, unspecified | CPT/HCPCS: 87045; 87177; 87209; 87427 ==

== ENCOUNTER 2021-10-29 12:04 | Outpatient (CLI) | payer OTHER, SELFPAY ==
[2021-10-29 13:38] LABS: Cholesterol 120 mg/dL (0-200); HDL Direct 61 mg/dL (40-60); LDL Cholesterol Calculated 55 mg/dL (<130); Triglycerides < 22 mg/dL (0-150)
[2021-10-29 13:42] LABS: Thyroid Stimulating Hormone Reflex 1.27 u/IU/mL (0.36-3.74)
== END 2021-10-29 12:05 | disposition home or self-care (01) ==
LOC: CHSLAB 12:05
PROVIDERS: PCP Nurse Practitioner Family; Visit Provider Internal Medicine Cardiovascular Disease
DX: R00.2 Palpitations (principal)
CPT/HCPCS: 36415; 80061; 84443